=== PATIENT | male | born 1970 | race Hispanic/Latino ===

== ENCOUNTER → 2017-07-29 | Outpatient (CLI) | payer OTHER ==
[~2017-07-29] MED LIST: AEC81 PO; ATOR20TA65 PO; CLOT15C TP; ISOS30TA6 PO; METO-391 PO; NITR0.4T50 SL; REGADENOSON 0.4 MG/5 ML PF SYG IVP SCH; TETRAHYDROZOLINE
== END | disposition home or self-care (01) ==
LOC: SHCH 08:50
PROVIDERS: ATTEND Internal Medicine Cardiovascular Disease
DX: I25.9 Chronic ischemic heart disease, unspecified (principal); I21.4 Non-ST elevation (NSTEMI) myocardial infarction; I25.10 Atherosclerotic heart disease of native coronary artery without angina pectoris
CPT/HCPCS: 78452; 93017; 96374; A9500 ×2; J2785

== ENCOUNTER 2017-10-06 06:02 | Day surgery (SDC) | payer OTHER ==
[2017-10-04 11:52] VITALS: BP 133/69
[2017-10-04 12:29] LABS: BASOPHILS % (AUTO) 0.6 % (0.0-5.0); EOSINOPHILS % (AUTO) 0.9 % (0.0-8.0); HEMATOCRIT 47.3 % (42-54); LYMPHOCYTES % (AUTO) 23.4 % (21.0-51.0); MEAN CORPUSCULAR HEMOGLOBIN 30.3 pg (27.0-33.0); MEAN CORPUSCULAR HGB CONC 33.7 g/dL (32.0-36.0); MEAN CORPUSCULAR VOLUME 89.8 fL (79-99); MONOCYTES % (AUTO) 5.1 % (3.0-13.0); PLATELET COUNT (AUTO) 209 K/uL (130-400); RED BLOOD CELL COUNT(AUTO) 5.26 MIL/uL (4.50-6.20); RED CELL DISTRIBUTION WIDTH 14.5 % (11.0-15.5); WHITE BLOOD COUNT (AUTO) 8.8 K/uL (4.8-10.8)
[2017-10-04 12:39] LABS: APPEARANCE,URINE Clear (CLEAR); BILIRUBIN,URINE Negative (NEGATIVE); COLOR,URINE Yellow (YELLOW); GLUCOSE, URINE (UA) Negative (NEGATIVE); INR 0.98 (0.85-1.15); KETONES,URINE Negative (NEGATIVE); LEUKOCYTE ESTERASE ,URINE Negative (NEGATIVE); NITRATE,URINE Negative (NEGATIVE); OCCULT BLOOD,URINE Negative (NEGATIVE); PROTEIN,URINE Negative (NEGATIVE); PROTHROMBIN TIME 10.3 SEC (9.6-11.6)
[2017-10-04 12:40] LABS: CREATININE 1.1 mg/dL (0.5-1.5); POTASSIUM 4.7 mmol/L (3.5-5.1)
[~2017-10-06] VITALS: Ht 175.3 cm; Wt 83.7 kg
[2017-10-06] VITALS (10 sets, daily range): BP systolic 111–140; BP diastolic 70–82
[~2017-10-06 06:02] MED LIST changes: -REGADENOSON 0.4 MG/5 ML PF SYG IVP SCH
[2017-10-06] MEDS ORDERED: ISOVUE-370 50ML VIAL IV ONE (07:08)
[2017-10-06] MEDS ORDERED: NITROGLYCERIN 5 MG/ML 10 ML VIAL IV ONE (07:08)
[2017-10-06] MEDS ORDERED: IOPAMIDOL-370 75 ML VIAL IV ONE (07:08)
[2017-10-06] MEDS ORDERED: LIDOCAINE HCL 2% 20ML ONE (07:10)
[2017-10-06] MEDS ORDERED: SODIUM CHLORIDE 0.9% 1000ML 1,000 ML IV SCH (08:00)
== END 2017-10-06 12:00 | disposition home or self-care (01) ==
LOC: DAH 06:02 → EEVIPCON 12:00
PROVIDERS: ATTEND Internal Medicine Cardiovascular Disease
DX: I25.9 Chronic ischemic heart disease, unspecified (principal); Z82.49 Family history of ischemic heart disease and other diseases of the circulatory system; Z79.899 Other long term (current) drug therapy; M62.82 Rhabdomyolysis; I20.8 Other forms of angina pectoris
CPT/HCPCS: 36415; 71045; 80048; 81003; 85025; 85610; 85730; 93005; 93458; A4606; C1760; C1894; J1644; J3490 ×2; J7030; Q9967 ×2